=== PATIENT | female | born 1970 | race American Indian/Alaskan Native ===

== ENCOUNTER 2020-07-24 16:31 | Emergency (ER) | payer OTHER ==
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
[2020-07-24 22:04] VITALS: BP 195/99
== END 2020-07-24 22:30 | disposition home or self-care (01) ==
LOC: ED 16:31
DX: S16.1XXA Strain of muscle, fascia and tendon at neck level, initial encounter (principal); R51.9 Headache, unspecified; J45.909 Unspecified asthma, uncomplicated; Z79.899 Other long term (current) drug therapy; Z91.040 Latex allergy status; Z88.8 Allergy status to other drugs, medicaments and biological substances; V49.59XA Passenger injured in collision with other motor vehicles in traffic accident, initial encounter; Y92.410 Unspecified street and highway as the place of occurrence of the external cause; Y93.89 Activity, other specified; Y99.8 Other external cause status
CPT/HCPCS: 72040

== ENCOUNTER 2021-05-30 18:38 | Emergency (ER) | payer OTHER ==
--- NOTE | 2021-05-30 21:26 | XRay Report ---
LEFT FOOT 4 VIEW(S) INDICATION / CLINICAL INFORMATION: injury COMPARISON: None available. FINDINGS: BONES / JOINT(S): No acute fracture or subluxation. No significant arthritis. SOFT TISSUES: No significant abnormality. ADDITIONAL FINDINGS: None. Signer Name: Herman Carrera DO Signed: 05/30/2021 9:22 PM Workstation Name: [id number]
[2021-05-30] MEDS ORDERED: IBUPROFEN 400 MG TAB PO ONE (22:59)
--- NOTE | 2021-05-30 23:04 | Emergency Department Report ---
ED Lower Extremity HPI - General Chief Complaint: Extremity Injury, Lower Stated Complaint: TOE IS PURPLE Time Seen by Provider: 05/30/21 22:50 Source: patient, RN notes reviewed, old records reviewed Mode of arrival: Ambulatory Limitations: No Limitations - History of Present Illness Initial Comments: The patient was evaluated in the emergency department for symptoms described in the history of present illness. He/she was evaluated in the context of the global COVID-19 pandemic, which necessitated consideration that the patient might be at risk for infection with the virus that causes COVID-19. Institutional protocols and algorithms that pertain to the evaluation of patients at risk for COVID-19 are in a state of rapid change based on informa tion released by regulatory bodies including the CDC and federal and state organizations. These policies and algorithms were followed during the patient's care in the emergency department. Please note that these policies, procedures and recommendations changed on a rapid basis. The patient is a 50-year-old female who reports that she is not , who reports that she has not delivered her given within the past 6 weeks, with a known history of chronic hypertension, and body mass index of 31.3, we does not currently have an outpatient primary care doctor, who presents to the ER today with a complaint of painful left third and fourth toe, and ecchymosis, after stubbing her toe yesterday. She denies additional injuries and complaints. She does not take any medications for blood pressure at this time. She has not really taken much of anything for pain. Complaint: other -: days(s) (1) Injury: Toes: Left Type of Injury: blunt Place: home Severity: mild Improves With: rest Worsens With: movement Context: direct blow Associated Symptoms: swelling, ambulatory, other (Dorsal ecchymosis) - Related Data Previous Rx's Medication Instructions Recorded Last Taken Type Amlodipine Besylate [Norvasc] 5 mg PO QDAY #30 tab 05/30/21 Unknown Rx Ibuprofen [Motrin] 600 mg PO Q8H PRN #30 tablet 05/30/21 Unknown Rx Allergies Allergy/AdvReac Type Severity Reaction Status Date / Time latex Allergy Itching Verified 05/11/20 14:31 acetaminophen [From Percocet] AdvReac Anaphylaxis Verified 05/11/20 14:31 oxycodone [From Percocet] AdvReac Anaphylaxis Verified 05/11/20 14:31 ED Review of Systems ROS: Stated complaint: TOE IS PURPLE Other details as noted in HPI Constitutional: denies: fever ENT: denies: epistaxis Respiratory: denies: cough Cardiovascular: denies: chest pain Gastrointestinal: denies: abdominal pain Musculoskeletal: joint swelling, myalgia Skin: other (Ecchymosis) Neurological: denies: weakness ED Past Medical Hx - Past Medical History Previous Medical History?: Yes Hx Asthma: Yes Additional medical history: RENY VALVE , ANGIO EDEMA - Surgical History Past Surgical History?: No - Social History Smoking Status: Never Smoker Substance Use Type: None - Medications Home Medications: Home Medications Medication Instructions Recorded Confirmed Last Taken Type Amlodipine Besylate [Norvasc] 5 mg PO QDAY #30 tab 05/30/21 Unknown Rx Ibuprofen [Motrin] 600 mg PO Q8H PRN #30 tablet 05/30/21 Unknown Rx ED Physical Exam - General Limitations: No Limitations General appearance: alert, obese - Head Head exam: Present: atraumatic, normocephalic - Eye Eye exam: Present: normal appearance, EOMI. Absent: nystagmus - ENT ENT exam: Present: normal exam, normal orophraynx, mucous membranes moist, nor mal external ear exam - Neck Neck exam: Present: normal inspection, full ROM. Absent: tenderness, meningismus - Respiratory Respiratory exam: Present: normal lung sounds bilaterally. Absent: respiratory distress, wheezes, rales, rhonchi, stridor, decreased breath sounds - Cardiovascular Cardiovascular Exam: Present: regular rate, normal rhythm, normal heart sounds. Absent: bradycardia, tachycardia, irregular rhythm, systolic murmur, diastolic murmur, rubs, gallop - GI/Abdominal GI/Abdominal exam: Present: soft. Absent: distended, tenderness, guarding, rebound, rigid, pulsatile mass - Extremities Exam Extremities exam: Present: full ROM, other (2+ pulses noted in the bilateral upper and lower extremities. There is no palpable cord. negative Homans sign. Muscular compartments are soft. The pelvis is stable.). Absent: normal inspection (The left third and fourth toes are minimally tender. The dorsal aspect of the left third toe is tender. There is ecchymosis noted), pedal edema, calf tenderness - Back Exam Back exam: Present: normal inspection, full ROM. Absent: tenderness, CVA tenderness (R), CVA tenderness (L), paraspinal tenderness, vertebral tenderness - Neurological Exam Neurological exam: Present: alert, oriented X3, normal gait, other (2+ pulses noted in the bilateral upper and lower extremities. There is no palpable cord. negative Homans sign. Muscular compartments are soft. The pelvis is stable.). Absent: motor sensory deficit - Psychiatric Psychiatric exam: Present: normal affect, anxious - Skin Skin exam: Present: warm, ecchymosis ED Course Vital Signs 05/30/21 20:57 Temperature 98.0 F Pulse Rate 97 H Respiratory 18 Rate Blood Pressure 209/120 O2 Sat by Pulse 97 Oximetry ED Lower Extremity MDM - Lab Data Vital Signs 05/30/21 20:57 Temperature 98.0 F Pulse Rate 97 H Respiratory 18 Rate Blood Pressure 209/120 O2 Sat by Pulse 97 Oximetry - Radiology Data Radiology results: pending, report reviewed, image reviewed LEFT FOOT 4 VIEW(S) INDICATION / CLINICAL INFORMATION: injury COMPARISON: None available. FINDINGS: BONES / JOINT(S): No acute fracture or subluxation. No significant arthritis. SOFT TISSUES: No significant abnormality. ADDITIONAL FINDINGS: None. Signer Name: Herman Carrera DO Signed: 05/30/2021 8:22 PM Workstation Name: [id number] - Medical Decision Making Differential diagnosis, including but not limited to: Sprain, strain, fracture, dislocation, ecchymosis, chronic hypertension Assessment and plan: 50-year-old female, who was afebrile, with reassuring vital signs with exception of chronic hypertension, patient has had documented hypertension at this hospital for over a year, who presents to the ER today with a primary complaint of minor injury to left third and fourth toes. She is neurovascularly intact without additional injuries, and x-rays show no fracture or dislocation. Rest, ice, compression, elevation, katelyn tape, Motrin for pain, outpatient follow-up with primary care. Obtain supportive shoes. Discussed need to initiate diet lifestyle modifications for body mass index of 31.3, as well as chronic elevated blood pressure. Patient specifically denies , and reports that she has not delivered her given in the past 6 weeks Critical care attestation.: If time is entered above; I have spent that time in minutes in the direct care of this critically ill patient, excluding procedure time. ED Disposition Clinical Impression: Body mass index between 30-39, adult, Elevated blood pressure reading, Toe pain, left, Bruised toe Disposition: 01 HOME / SELF CARE / HOMELESS Is pt being admited?: No Does the pt Need Aspirin: No Condition: Good Instructions: RICE Therapy for Routine Care of Injuries, Hypertension, Adult Additional Instructions: Patient is found to have body mass index of 31.3, and chronically elevated blood pressure, which has been present since 2020. We recommend that the patient exercise as tolerated, diet appropriately, and lose weight aggressively. Patient may take the prescribed pain medication as needed for left toe pain, and alternate ice packs and heat packs as needed for physical pain. We also recommend that patient obtain good supportive footwear, heel inserts, and avoid strenuous physical activity. Recommend follow-up with a primary care doctor or certified court/medical interpreter for left traumatic toe injury within the next 7 to 10 days. We recommend follow-up with primary care doctor for chronically elevated blood pressure within the next month. Patient will receive a prescription for amlodipine for hypertension, although patient should be aware that first-line treatment for hypertension and elevated blood pressure includes diet, exercise, and weight loss. Please return to the emergency room right away with new pain, worsened pain, migration of pain, projectile vomiting, change in mental status, confusion, inability tolerate liquid feeds, new, worsened or different symptoms not present on the initial emergency room evaluation Referrals: [facility] [Provider Group] - 3-5 Days NATALIIA LEUNG DPM [Staff Physician] - 3-5 Days
[2021-05-31 00:16] VITALS: BP 180/98
== END 2021-05-31 00:15 | disposition home or self-care (01) ==
LOC: ED 18:38
DX: S90.122A Contusion of left lesser toe(s) without damage to nail, initial encounter (principal); R03.0 Elevated blood-pressure reading, without diagnosis of hypertension; Z68.30 Body mass index [BMI] 30.0-30.9, adult; J45.909 Unspecified asthma, uncomplicated; Z79.899 Other long term (current) drug therapy; Z88.5 Allergy status to narcotic agent; Z88.6 Allergy status to analgesic agent; Z91.040 Latex allergy status; Z88.8 Allergy status to other drugs, medicaments and biological substances; X58.XXXA Exposure to other specified factors, initial encounter; Y93.89 Activity, other specified; Y92.89 Other specified places as the place of occurrence of the external cause; Y99.8 Other external cause status
CPT/HCPCS: 99283